=== PATIENT | male | born 1980 | race Caucasian/White ===

== ENCOUNTER 2016-12-02 07:35 | Emergency (ER) | payer BC ==
[~2016-12-02] VITALS: Ht 180.3 cm; Wt 77.1 kg
[2016-12-02 07:39] VITALS: BP 124/56
== END 2016-12-02 07:51 | disposition home or self-care (01) ==
LOC: ER 07:36
DX: H66.92 Otitis media, unspecified, left ear (principal); H72.92 Unspecified perforation of tympanic membrane, left ear
CPT/HCPCS: 99283; A4606; Z7610

== ENCOUNTER 2023-09-10 13:03 | Emergency (ER) | payer BC ==
[~2023-09-10] VITALS: Ht 157.5 cm; Wt 70.8 kg
[2023-09-10] MEDS ORDERED: LIDOCAINE HCL/PF 1% 30 ML SDV ONE (13:14)
[2023-09-10] MEDS ORDERED: BACI/NEOM/POLY B OINT PKT 1 UDPKT PACKET TP ONE (13:30)
[2023-09-10] MEDS ORDERED: LIDOCAINE 1% INJ 50 ML MDV IJ ONE (13:30)
[2023-09-10] MEDS ORDERED: BACI/NEOM/POLY B OINT PKT 1 UDPKT PACKET ONE (13:38)
[2023-09-10] MEDS ORDERED: IBUP-1955 PO (14:19)
[2023-09-10 14:45] VITALS: BP 127/68; TEMP 98; O2SAT 100
== END 2023-09-10 14:25 | disposition home or self-care (01) ==
LOC: ER 13:10
DX: S61.412A Laceration without foreign body of left hand, initial encounter (principal); W26.0XXA Contact with knife, initial encounter; Y93.89 Activity, other specified; Y92.89 Other specified places as the place of occurrence of the external cause; Y99.8 Other external cause status
CPT/HCPCS: 12002; 99282; A6403; J3490

== ENCOUNTER 2023-09-22 12:08 | Emergency (ER) | payer BC ==
[~2023-09-22] VITALS: Ht 172.7 cm; Wt 78.0 kg
[~2023-09-22 12:08] MED LIST: IBUP-1955 PO
[2023-09-22 12:15] VITALS: BP 141/68; TEMP 98.4; O2SAT 100
== END 2023-09-22 12:47 | disposition home or self-care (01) ==
LOC: ER 12:11
DX: S61.412D Laceration without foreign body of left hand, subsequent encounter (principal); Z79.899 Other long term (current) drug therapy; X58.XXXD Exposure to other specified factors, subsequent encounter